=== PATIENT | female | born 1995 | race Caucasian/White ===

== ENCOUNTER 2019-03-23 00:47 | Emergency (ER) | payer SELFPAY ==
[~2019-03-23] VITALS: Ht 175.3 cm; Wt 90.7 kg
[2019-03-23 01:13] VITALS: BP 157/90
[2019-03-23] MEDS ORDERED: AMOX500C PO (01:19)
--- NOTE | 2019-03-23 01:19 | PHYS DOC ---
Adult General Chief Complaint Chief Complaint: DENTAL PROBLEM [facility] HPI 23-year-old female presents to the emergency department with complaints of tooth pain. Patient states started this morning she has increasing swelling to her jaw. She denies any fever, drainage. Patient has evidence of dental caries th roughout. She primarily appreciated to teeth #18, 19. She denies any shortness of breath, nausea, vomiting, headache or visual change. Nothing makes her symptoms worse, nothing makes her symptoms better. She has tried no [id number] medications at this time. All other ROS negative unless documented in HPI Review of Systems Review of Systems See Above Allergies Allergies Allergies Coded Allergies Type Severity Reaction Last Updated Verified No Known Drug Allergies 03/23/19 No Physical Exam Physical Exam See Above Constitutional: Well developed, well nourished, no acute distress, non-toxic appearance. [] HENT: Normocephalic, atraumatic, bilateral external ears normal, oropharynx moist, no oral exudates, nose normal. Patient with redness appreciated to her gums, tender to palpation along tooth #18 and 19, she does have facial swelling appreciated as well. No evidence of airway concern at this time. She is not short of breath, no stridor.[] Eyes: PERRLA, EOMI, conjunctiva normal, no discharge. [] Neck: Normal range of motion, no tenderness, supple, no stridor. [] Cardiovascular:Heart rate regular rhythm, no murmur [] Skin: Warm, dry, no erythema, no rash. [] Neurologic: Alert and oriented X 3, no focal deficits noted. [] Psychologic: Affect normal, judgement normal, mood normal. [] EKG EKG [] Radiology/Procedures Radiology/Procedures [] Course & Med Decision Making Course & Med Decision Making Pertinent Labs and Imaging studies reviewed. (See chart for details) []23-year-old female presents to the emergency department with complaints of tooth pain. Patient states started this morning she has increasing swelling to her jaw. She denies any fever, drainage. Patient has evidence of dental caries throughout. She primarily appreciated to teeth #18, 19. She denies any shortness of breath, nausea, vomiting, headache or visual change. Nothing makes her symptoms worse, nothing makes her symptoms better. She has tried no [id number] medications at this time. Dental block performed to the inferior alveolar nerve. Given swelling of face, we'll plan for antibiotic therapy 10 days, amoxicillin Recommend following up with dentist as outpatient Return precautions provided Anders Disclaimer Dragon Disclaimer This electronic medical record was generated, in whole or in part, using a voice recognition dictation system. Departure Departure Impression: Primary Impression: Dental caries Additional Impression: Dental abscess Disposition: HOME, SELF-CARE Condition: IMPROVED Referrals: MYCHAL GOFF MD (PCP) Patient Instructions: Dental Abscess, Dental Caries-Brief Additional Instructions: Recommend follow up with PCP 3 - 5 days Return to the ER with worsening symptoms, intractable pain, fever, altered mental status Tylenol/Motrin as needed for pain Take antibiotics as directed Dental block performed in ER Scripts Amoxicillin (AMOXICILLIN) 500 Mg Capsule 1 CAP PO Q8HRS for infection for 10 Days, #30 CAP Prov: ELISA VALDEZ MD 03/23/19 Problem Qualifiers ELISA VALDEZ MD Mar 23, 2019 01:19
== END 2019-03-23 01:22 | disposition home or self-care (01) ==
LOC: ER 00:47
DX: K02.9 Dental caries, unspecified (principal); K04.7 Periapical abscess without sinus
CPT/HCPCS: 64400; 99283; 99284